=== PATIENT | female | born 1990 ===

== ENCOUNTER → 2019-09-26 01:05 | Observation (INO) ==
[2019-09-25 23:39] LABS: Amphetamine Screen,Urine Negative ng/mL (Cutoff=1000); Barbiturate Screen,Urine Negative ng/mL (Cutoff=200); Benzodiazepines Screen,Urine Negative ng/mL (Cutoff=200); Cannabinoid Screen,Urine Negative ng/mL (Cutoff = 50); Cocaine Screen,Urine Negative ng/mL (Cutoff= 300); Opiate Screen,Urine Negative ng/mL (Cutoff=300); Phencyclidine Screen,Urine Negative ng/mL (Cutoff=25)
[2019-09-25 23:41] LABS: Bacteria,Urine Few per hpf (None-Few); Bilirubin,Urine Negative (Negative); Blood,Urine Negative (Negative); Clarity,Urine Clear (Clear); Color,Urine Light-Yellow (Yellow); Glucose,Urine (UA) Normal (Normal); Ketones,Urine Negative (Negative); Leukocyte Esterase,Urine Trace (Negative); Mucus,Urine Few per lpf (None-Few); Nitrite,Urine Negative (Negative); Protein,Urine Negative (Neg-Trace); RBC,Urine 0-3 per hpf (0-3); Specific Gravity,Urine 1.013 (1.010-1.025); Squamous Epithelial Cell,Urine Moderate per hpf (None-Few); Transitional Epi Cells,Urine Few per hpf (None-Few); WBC,Urine 0-3 per hpf (0-3)
[~2019-09-26 01:05] MED LIST: Ondansetron 4 MG/2 ML VIAL IVP ONE; Ringers Solution, Lactated 1,000 ML IVC ONE
== END | disposition home or self-care (01) ==
LOC: 1NENULAB
PROVIDERS: ADMIT Obstetrics & Gynecology; ATTEND Obstetrics & Gynecology

== ENCOUNTER 2019-11-28 06:11 | Inpatient (IN) ==
[2019-11-28] MEDS ORDERED: Ringers Solution, Lactated 1,000 ML ONE (06:31)
[2019-11-28] MEDS ORDERED: Naloxone 0.4 MG/ML INJ IVP PRN ×2 (06:39→13:19)
[2019-11-28] MEDS ORDERED: Metoclopramide 10 MG/2 ML VIAL IVP PRN ×2 (06:39→13:19)
[2019-11-28] MEDS ORDERED: Azithromycin 500 MG in 0.9 % Sodium Chloride 250 ML IVPB ONE (06:39)
[2019-11-28] MEDS ORDERED: Famotidine 20 MG/2 ML VIAL IVP PRN (06:39)
[2019-11-28] MEDS ORDERED: Ringers Solution, Lactated 1,000 ML IVC SCH (06:45)
[2019-11-28] MEDS ORDERED: *HR* FentaNYL (PF) 100 MCG/2 ML VIAL ONE (06:55)
[2019-11-28] MEDS ORDERED: *HR* Morphine Sulfate/PF 10 MG/10 ML AMPUL ONE (06:55)
[2019-11-28 07:08] LABS: Basophils % 0.5 %; Eosinophils # 0.2 K/mcL (0.0-0.6); Eosinophils % 2.3 %; Hematocrit 31.3 % (35.3-44.9); Hemoglobin 10.2 g/dL (11.5-15.4); Immature Granulocytes % 0.6 % (0-4); Lymphocytes # 1.6 K/mcL (0.6-4.6); Lymphocytes % 17.9 %; Mean Corpuscular HGB Conc 32.6 g/dL (31.6-35.5); Mean Corpuscular Hemoglobin 28.3 pg (28.0-33.3); Mean Corpuscular Volume 86.9 fL (83.0-100.0); Mean Platelet Volume 11.7 fL (9.4-12.4); Monocytes # 0.7 K/mcL (0.0-1.3); Monocytes % 7.8 %; Neutrophils # 6.3 K/mcL (1.6-8.9); Platelet Count 264 K/mcL (140-400); Red Cell Distribution Width 13.4 % (11.5-14.5); Segmented Neutrophils % 70.9 %; White Blood Count 8.8 K/mcL (4.3-11.1)
[2019-11-28] MEDS ORDERED: CeFAZolin 2,000 MG/50 ML BAG IVPB ONE (07:10)
[2019-11-28 07:14] LABS: Amphetamine Screen,Urine Negative ng/mL (Cutoff=1000); Barbiturate Screen,Urine Negative ng/mL (Cutoff=200)
[2019-11-28 07:15] LABS: Benzodiazepines Screen,Urine Negative ng/mL (Cutoff=300); Cannabinoid Screen,Urine Negative ng/mL (Cutoff = 50); Cocaine Screen,Urine Negative ng/mL (Cutoff= 300); Opiate Screen,Urine Negative ng/mL (Cutoff=300); Phencyclidine Screen,Urine Negative ng/mL (Cutoff=25)
[2019-11-28] MEDS ORDERED: *HR* Phenylephrine 10 MG/ML VIAL ONE (07:38)
[2019-11-28] MEDS ORDERED: *HR* Oxytocin 10 UNIT/ML VIAL IM ONE (09:23)
[2019-11-28] MEDS ORDERED: *HR* HYDROmorphone PF 0.5 MG/0.5 ML SYRINGE IVP PRN (09:26)
[2019-11-28] MEDS ORDERED: Acetaminophen IV 1,000 MG/100 ML BAG IVPB PRN (09:26)
[2019-11-28] MEDS ORDERED: Ondansetron 4 MG/2 ML VIAL IVP PRN ×2 (09:26→13:19)
[2019-11-28] MEDS ORDERED: EPHEDrine 50 MG/ML VIAL ONE (09:42)
[2019-11-28] MEDS ORDERED: Ondansetron 4 MG/2 ML VIAL ONE (09:49)
[2019-11-28] MEDS ORDERED: Ketorolac 30 MG/ML VIAL ONE (10:36)
[2019-11-28] MEDS ORDERED: *HR* HYDROMORPHONE 2 MG/ML VIAL ONE (10:40)
[2019-11-28] MEDS ORDERED: Oxytocin 20 units/ LR 1000 mL 20 UNIT/1,000 ML BAG IVC ONE (12:00)
[2019-11-28] MEDS ORDERED: *HR* OxyCODONE Immed Rel 5 MG TABLET PO PRN (13:19)
[2019-11-28] MEDS ORDERED: Sennosides 8.6 MG TABLET PO PRN (13:19)
[2019-11-28] MEDS ORDERED: Measles/Mumps/Rubella Vacc 0.5 ML VIAL SQ ONE (13:19)
[2019-11-28] MEDS: Oxytocin 20 units/ LR 1000 mL 20 UNIT/1,000 ML BAG IVC SCH (18:40)
[2019-11-28] MEDS: *HR* Buprenorphine HCl 8 MG TAB.SUBL SL SCH (20:08)
[2019-11-28] MEDS: Acetaminophen 325 MG TABLET PO PRN (23:05)
[2019-11-29] MEDS: Oxytocin 20 units/ LR 1000 mL 20 UNIT/1,000 ML BAG IVC SCH (02:50)
[2019-11-29] MEDS: Acetaminophen 325 MG TABLET PO PRN (05:04)
[2019-11-29 06:00] LABS: Basophils # 0.1 K/mcL (0.0-0.2); Basophils % 0.5 %; Eosinophils # 0.3 K/mcL (0.0-0.6); Eosinophils % 3.1 %; Hematocrit 32.8 % (35.3-44.9); Hemoglobin 10.5 g/dL (11.5-15.4); Immature Granulocytes % 0.4 % (0-4); Lymphocytes # 1.2 K/mcL (0.6-4.6); Lymphocytes % 12.5 %; Mean Corpuscular Hemoglobin 27.9 pg (28.0-33.3); Mean Platelet Volume 11.5 fL (9.4-12.4); Monocytes # 0.9 K/mcL (0.0-1.3); Monocytes % 8.9 %; Neutrophils # 7.4 K/mcL (1.6-8.9); Platelet Count 284 K/mcL (140-400); Red Blood Count 3.77 M/mcL (3.82-4.97); Red Cell Distribution Width 13.5 % (11.5-14.5); Segmented Neutrophils % 74.6 %; White Blood Count 9.9 K/mcL (4.3-11.1)
[2019-11-29] MEDS: *HR* Buprenorphine HCl 8 MG TAB.SUBL SL SCH ×2 (08:27→20:19)
[2019-11-29] MEDS: Prenatal Vit/FA 1 EACH TABLET PO SCH (08:27)
[2019-11-29] MEDS: Simethicone 80 MG TAB.CHEW PO PRN ×2 (08:27→20:19)
[2019-11-29] MEDS ORDERED: *HR* Buprenorphine HCl 8 MG TAB.SUBL SL STA (11:02)
[2019-11-29] MEDS: Ibuprofen 600 MG TABLET PO PRN ×2 (11:18→20:19)
[2019-11-30 07:36] VITALS: BP 114/75
[2019-11-30] MEDS: Prenatal Vit/FA 1 EACH TABLET PO SCH (07:36)
[2019-11-30] MEDS: Ibuprofen 600 MG TABLET PO PRN (07:36)
[2019-11-30] MEDS: *HR* Buprenorphine HCl 8 MG TAB.SUBL SL SCH (07:37)
== END 2019-11-30 13:55 | disposition home or self-care (01) | DRG 787 ==
LOC: 1NENULAB 06:11 → 1NENUOBS 13:14
PROVIDERS: ADMIT Obstetrics & Gynecology; ATTEND Obstetrics & Gynecology